=== PATIENT | female | born 1995 | race Hispanic/Latino ===

== ENCOUNTER 2016-10-15 13:49 | Outpatient (CLI) | payer MEDICAID, OTHER ==
[2016-10-15 14:18] LABS: #Basophils 0.1 thou/uL (0.0-0.2); #Monocytes 0.7 thou/uL (0.11-0.59); #Neutrophils 6.1 thou/uL (1.40-6.50); %Basophils 0.6 % (0.0-1.0); %Eosinophils 0.4 % (0.0-10.0); %Lymphocytes 22.9 % (21.0-51.0); %Monocytes 7.4 % (0.0-10.0); %Neutrophils 68.7 % (42.0-75.0); Hemoglobin 11.7 g/dL (12.0-16.0); Mean Corpuscular HGB CONC 32.7 g/dL (32.0-36.0); Mean Corpuscular Volume 88.5 fl (81.0-99.0); Mean Platelet Volume 10.4 fL (7.4-10.4); Platelet Count 175 thou/uL (130-400); RBC Distribution Width 13.3 % (11.5-14.5); Red Blood Cell (RBC) Count 4.02 mill/uL (4.20-5.40); White Blood Cell (WBC) Count 8.9 thou/uL (4.8-10.8)
[2016-10-15 15:35] LABS: Amphetamine Not Detected (NotDetected); Barbiturates Screen Not Detected (NotDetected); Benzodiazepine Screen Not Detected (NotDetected); Cocaine Metabolite Screen Not Detected (NotDetected); Medtox Control Line Valid? VALID (VALID); Methadone Not Detected (NotDetected); Methamphetamine Not Detected (NotDetected); Opiate Screen Not Detected (NotDetected); Oxycodone Screen Not Detected (NotDetected); Phencyclidine (PCP) Not Detected (NotDetected); THC/Cannabinoid Screen Not Detected (NotDetected); Tricyclic Screen Not Detected (NotDetected)
[2016-10-16 16:51] LABS: HBSAg Index 0.48 S/CO (0-0.99); HIV (1/2) Antibody/Antigen Non-Reactive (NonReactive); HIV 1/2 INDEX 0.62 S/CO (<1.00); Hep B Surf Ag Non-Reactive S/CO (NonReactive)
[2016-10-19 10:19] LABS: Rubella Virus IgG 1.85 index (Immune >0.99)
[2016-10-19 17:53] LABS: Chlamydia by PCR Not Detected (NotDetected); GC by PCR Not Detected (NotDetected)
[2016-10-19 20:09] LABS: AFP MoM 0.58 (.); Alpha-Fetoprotein 26.5 ng/mL (.); DSR by Age 1 in 1088 (.); Down Syndrome Risk 2nd Tri 1638 (.); Gest Age on Coll Date 16.3 WEEKS (.); HCG MoM 1.25 (.); Inhibin A 174.49 pg/mL (.); Inhibin A MoM 0.74 (.); Insulin Dep Diabetes? No (.); Maternal Age at EDD 23.5 YEARS (.); Method of Estimation Ultrasound (.); Multiple Gestation No (.); OSB Risk 10000 (.); Race Other (.); T18 Risk Not increased (.); Test Results: *Screen Negative* (.); UE3 0.68 ng/mL (.); UE3 MoM 0.66 (.); Weight 98 lbs (.)
== END 2016-10-15 13:50 | disposition home or self-care (01) ==
LOC: MADLABBHPM 13:49
PROVIDERS: ATTEND Family Medicine
DX: Z34.82 Encounter for supervision of other normal pregnancy, second trimester (principal)
CPT/HCPCS: 36415; 80081; 80306; 82105; 82677; 84702; 86336; 87086; 87491; 87591